=== PATIENT | female | born 2005 | race Caucasian/White ===

== ENCOUNTER 2024-05-03 15:55 | Emergency (ER) | payer BC ==
[2024-05-03] MEDS ORDERED: Lidocaine 1% 10 ML MDV INJECT ONE (15:58)
== END 2024-05-03 16:30 | disposition home or self-care (01) ==
LOC: VM.ED 15:55
DX: S01.112A Laceration without foreign body of left eyelid and periocular area, initial encounter (principal); X58.XXXA Exposure to other specified factors, initial encounter; Y93.67 Activity, basketball
CPT/HCPCS: 12013; 99282; 99283